=== PATIENT | male | born 1980 | race Hispanic/Latino ===

== ENCOUNTER → 2025-01-25 | Outpatient (CLI) | payer OTHER ==
[~2025-01-25] MED LIST: IOHEXOL-350 75 ML VIAL IV ONE
--- NOTE | 2025-01-25 12:06 | HMCIMG ---
CT ABDOMEN W/CONTRAST HISTORY: Periumbilical swelling COMPARISON: None TECHNIQUE: Multiple sequential axial images of the abdomen were obtained from the dome of the diaphragm through iliac crests. Patient was given 75 cc of Omnipaque through intravenous route. Oral contrast was given. FINDINGS: No pleural effusion is seen bilaterally. There is no evidence of parenchymal disease or pulmonary nodule of the visualized lower lungs. Degenerative changes are seen of the thoracolumbar spine. Liver measures 18 cm. Spleen measured 12 cm. The liver, spleen, adrenal glands and pancreas are unremarkable. There is no evidence of hydronephrosis bilaterally. No evidence of renal stone is seen. Fecal material is seen in the colon. There are normal-sized retroperitoneal and mesenteric lymph nodes. There is mild diverticulosis. No bowel obstruction is seen. No ascites is seen. Atherosclerotic changes are present. There may be subtle periumbilical hernia with fat content. IMPRESSION: 1. No acute finding. CT was performed with one or more following dose reduction techniques: automated exposure control, adjustment of the mA and kv according to patient's size, or use of a iterative reconstruction technique.
== END | disposition home or self-care (01) ==
LOC: RAH 10:17
PROVIDERS: ATTEND Internal Medicine
DX: K57.90 Diverticulosis of intestine, part unspecified, without perforation or abscess without bleeding (principal); M47.815 Spondylosis without myelopathy or radiculopathy, thoracolumbar region; R19.05 Periumbilic swelling, mass or lump
CPT/HCPCS: 74160; Q9967